=== PATIENT | male | born 1950 | race Caucasian/White ===

== ENCOUNTER 2016-10-10 13:37 | Emergency (ER) | payer OTHER ==
[~2016-10-10] VITALS: Ht 180.3 cm; Wt 83.9 kg
[~2016-10-10 13:37] MED LIST: ESOM40CA PO
[2016-10-10 15:08] LABS: BASOPHILS # (AUTO) 0.1 K/uL (0.0-0.2); EOSINOPHILS # (AUTO) 0.2 K/uL (0.0-0.7); EOSINOPHILS % (AUTO) 2.4 % (0.0-7.0); HEMOGLOBIN 15.5 g/dL (14.0-18.0); LYMPHOCYTES # (AUTO) 2.4 K/uL (0.8-4.8); LYMPHOCYTES % (AUTO) 33.5 % (20.5-51.5); MEAN CORPUSCULAR HEMOGLOBIN 30.1 uug (27.0-31.0); MEAN CORPUSCULAR HGB CONC 34 g/dL (32.0-37.0); MEAN CORPUSCULAR VOLUME 89.2 fL (82.0-92.0); MONOCYTES # (AUTO) 0.7 K/uL (0.1-1.30); NEUTROPHILS # (AUTO) 3.8 K/uL (1.8-8.9); NEUTROPHILS % (AUTO) 53.1 % (38.5-71.5); PLATELET COUNT (AUTO) 249 K/uL (150-450); RED BLOOD CELL COUNT(AUTO) 5.15 MIL/uL (4.70-6.10); RED CELL DISTRIBUTION WIDTH 12.7 % (11.5-14.5); WHITE BLOOD COUNT (AUTO) 7.2 K/uL (4.0-11.2)
[2016-10-10 15:14] LABS: POTASSIUM 4.6 mmol/L (3.5-5.1)
[2016-10-10 15:23] LABS: ALBUMIN 3.5 g/dL (3.4-5.0); BILIRUBIN,TOTAL 0.3 mg/dL (0.2-1.0); TOTAL PROTEIN, SERUM 6.6 g/dL (6.4-8.2)
--- NOTE | 2016-10-10 15:44 | NUR ---
Patient discharged to home in stable conditon. Written and verbal after care instructions given. Patient verbalizes understanding of instructions.
== END 2016-10-10 16:02 | disposition home or self-care (01) ==
LOC: ER 13:37
DX: M51.36 Other intervertebral disc degeneration, lumbar region (principal); K21.9 Gastro-esophageal reflux disease without esophagitis; Z85.46 Personal history of malignant neoplasm of prostate
CPT/HCPCS: 36415; 72131; 85025; 85651; A4663

== ENCOUNTER 2019-05-12 00:56 | Emergency (ER) | payer MEDICARE ==
[~2019-05-12] VITALS: Ht 180.3 cm; Wt 78.9 kg
[2019-05-12] MEDS ORDERED: predniSONE 20 MG TABLET PO ONE (01:15)
[2019-05-12] MEDS ORDERED: HYDROMORPHONE 1 MG/1 ML DISP.SYRIN IM ONE (01:15)
[2019-05-12] MEDS ORDERED: ONDANSETRON 4 MG/2 ML VIAL IM ONE (01:15)
[2019-05-12] MEDS ORDERED: HYDROMORPHONE 1 MG/1 ML DISP.SYRIN ONE (01:29)
[2019-05-12] MEDS ORDERED: ONDANSETRON 4 MG/2 ML VIAL ONE (01:29)
[2019-05-12] MEDS ORDERED: predniSONE 20 MG TABLET ONE (01:30)
--- NOTE | 2019-05-12 01:38 | NUR ---
Patient discharged to home in stable conditon. Written and verbal after care instructions given. Patient verbalizes understanding of instructions. patient alert and oriented x4. patiet self ambulatory with steady gait. Exit care package and personal belongings taken home with the patient at discharge.
--- NOTE | 2019-05-12 01:39 | NUR ---
at bedside at discharge and consents to driving the patient home and continuation of care.
[2019-05-12 01:40] VITALS: BP 110/71
== END 2019-05-12 01:41 | disposition home or self-care (01) ==
LOC: ER 01:01
DX: M43.6 Torticollis (principal); Z88.0 Allergy status to penicillin; Z79.899 Other long term (current) drug therapy
CPT/HCPCS: 96372 ×2; 99283; J1170; J2405; J7512; A4663